=== PATIENT | male | born 1965 | race Hispanic/Latino ===

== ENCOUNTER 2016-06-22 06:52 | Emergency (ER) | payer OTHER ==
[~2016-06-22] VITALS: Ht 170.2 cm; Wt 90.7 kg
[~2016-06-22 06:52] MED LIST: BACTRIM DS 8001 TAB PO; CYMBALTA 30 MG30 MG PO; CYMBALTA60 MG PO; FLEXERIL10 MG PO; KEFLEX500 MG PO; MOBIC 15MG15 MG PO; OLANZAPINE7.5 MG PO; PRAVASTATIN SOD20 M1 PO; VICODIN10-300 PO; ZOFRAN ODT4 MG SL; ZYPREXA7.5 MG PO
--- NOTE | 2016-06-22 07:18 | ED GI/GU/ABDOMINAL COMPLAINT ---
History of Present Illness General Chief Complaint: General Adult Stated Complaint: +N+D/ABD PAIN Source: patient Exam Limitations: no limitations Vital Signs & Intake/Output Vital Signs & Intake/Output Vital Signs Date Time Temp Pulse Resp B/P Pulse O2 O2 Flow FiO2 Ox Delivery Rate 06/22 0636 Room Air Room Air 06/22 704 97.7 72 20 144/87 98 Room Air Allergies Coded Allergies: NO KNOWN ALLERGIES (06/22/16) Reconcile Medications Dicyclomine Hydrochloride (Bentyl) 10 MG CAPSULE 1 CAP PO TID PRN SPASM Diphenoxylate HCl/Atropine (Lomotil 2.5-0.025 MG Tablet) 2.5 MG-0.025 MG TABLET 1 TAB PO 4 TIMES/DAY PRN DIARRHEA DULOXETINE HCL (Cymbalta) 60 MG ECC 1 CAP PO BID MENTAL HEALTH (Reported) HYDROCODONE/ACETAMINOPHEN (Hydrocodon-Acetaminophen 5-325) 1 TAB TAB 1 TAB PO TID PRN PAIN Olanzapine 7.5 MG TAB 1 TAB PO QPM MENTAL HEALTH (Reported) Pravastatin Sodium 20 MG TAB 1 TAB PO QPM CHOLESTEROL (Reported) Triage Note: PT TO ED FROM HOME FOR "I THINK I GOT THAT STOMACH BUG." +NAUSEA, NO VOMITING, +DIARRHEA; DENIES BLOOD IN STOOL. +ABD PAIN, "TUESDAY NIGHT I ATE A DOUBLE BURGER FROM [employer] AND I DON'T THINK IT WAS COOKED ALL THE WAY. AND THEN YESTERDAY MORNING I STARTED FEELING SICK." Triage Nurses Notes Reviewed? yes Onset: Abrupt Duration: day(s): (2), waxing and waning Timing: multiple episodes today Location: generalized abdomen Activities at Onset: ATE UNDERCOOKED HAMBURGER No Modifying Factors: none Associated Symptoms: abdominal pain, diarrhea HPI: This is a 50-year-old male with history of depression, borderline high cholesterol was as the acutely of abdominal pain and diarrhea that started on Tuesday morning. He states that in a heated [employer] and thinks he ate an undercooked burger. No fever or chills. No nausea or vomiting. He states he has no cramping abdominal pain that got better after diarrhea yesterday. He tolerated some soup and some toast last night but then symptoms started again in the evening. Denies any blood in his stool. Positive sick contacts at home with gastrointestinal symptoms. No recent travel or antibiotic use. Past History Travel History Traveled to [place] past 21 day No Medical History Any Pertinent Medical History? see below for history Neurological: NONE EENT: NONE Cardiovascular: hyperlipidemia Respiratory: NONE Gastrointestinal: NONE Hepatic: NONE Renal: NONE Musculoskeletal: NONE Psychiatric: bipolar disease, depression Endocrine: NONE Blood Disorders: NONE Cancer(s): NONE COMPLIANCE SPEC/Reproductive: NONE Surgical History Surgical History: ANAL FISSURE Psychosocial History Who do you live with Family What is your primary language Scottish Tobacco Use: Quit >30 days ago ETOH Use: occasional use Illicit Drug Use: denies illicit drug use Family History Hx Contributory? No Review of Systems Review of Systems Constitutional: Reports: no symptoms. EENTM: Reports: no symptoms. Respiratory: Reports: no symptoms. Cardiovascular: Reports: no symptoms. GI: Reports: no symptoms. Genitourinary: Reports: no symptoms. Musculoskeletal: Reports: no symptoms. Skin: Reports: no symptoms. Neurological/Psychological: Reports: no symptoms. Hematologic/Endocrine: Reports: no symptoms. Immunologic/Allergic: Reports: no symptoms. All Other Systems: Reviewed and Negative Physical Exam Physical Exam General Appearance: well developed/nourished, alert, awake Head: atraumatic, normal appearance Eyes: Bilateral: normal appearance, PERRL, EOMI. Ears, Nose, Throat, Mouth: hearing grossly normal, moist mucous membrane Neck: normal inspection, supple, full range of motion Respiratory: normal breath sounds, chest non-tender, no respiratory distress Cardiovascular: regular rate/rhythm Peripheral Pulses: 2+ radial (R), 2+ radial (L) Gastrointestinal: normal bowel sounds, soft, non-tender Extremities: normal range of motion, evidence of injury, pelvis stable Core Measures ACS in differential dx? No Severe Sepsis Present: No Septic Shock Present: No Progress Differential Diagnosis: COLITIS, ENTERITIS, ISCHEMIC BOWEL, IBD, IBS Plan of Care: Orders Procedure Date/time Status Add-on Test (ER Only) 06/22 07 Active LACTIC ACID 06/22 724 Complete URINALYSIS 06/22 711 Active TROPONIN LEVEL 06/22 711 Complete COMPREHENSIVE METABOLIC PANEL 06/22 711 Complete CBC WITHOUT DIFFERENTIAL 06/22 711 Complete EKG 06/22 711 Active Current Medications Sig/Andre Start time Last Medication Dose Stop Time Status Admin Sodium Chloride 1,000 ML BOLUS ONE 06/22 08 AC (Normal Saline 0.9%) 06/22 928 Laboratory Tests 06/22/16 0846: Urine Color YEL, Urine Clarity HAZY H, Urine pH 6.0, Ur Specific [place] >= 1.030, Urine Protein TRACE H, Urine Ketones TRACE H, Urine Nitrite NEG, Urine Bilirubin NEG, Urine Urobilinogen 0.2, Ur Leukocyte Esterase NEG, Ur Microscopic SEDIMENT EXAMINED, Urine RBC Pending, Urine Hemoglobin NEG, Urine Glucose NEG 06/22/16 0725: Anion Gap 17 H, Estimated GFR > 60, BUN/Creatinine Ratio 16.0, Glucose 153 H, Lactic Acid 1.5, Calcium 10.0, Total Bilirubin 0.8, AST 16 L, ALT 24, Alkaline Phosphatase 85, Troponin I < 0.01, Total Protein 7.8, Albumin 4.5, Globulin 3.3, Albumin/Globulin Ratio 1.4, CBC w Diff NO MAN DIFF REQ, RBC 5.91, MCV 88.1, MCH 29.7, RDW 13.4, MPV 7.6, Gran % 79.0 H, Lymphocytes % 12.1 L, Monocytes % 7.6, Eosinophils % 1.0, Basophils % 0.3, Absolute Granulocytes 9.1 H, Absolute Lymphocytes 1.4, Absolute Monocytes 0.9 H, Absolute Eosinophils 0.1, Absolute Basophils 0, PUBS MCHC 33.8 06/22/2016 8:18:02 AM Patient resting comfortably. Second liter of fluid ordered. Urinalysis pending at this time. (LU CHAVEZ,EDWARDO) Initial ED EKG: NSR Departure Departure Time of Disposition: 905 Disposition: HOME OR SELF CARE Condition: Stable Clinical Impression Primary Impression: Diarrhea Referrals: TROY CHAVEZ,SUDHAKAR (PCP/Family) Additional Instructions: Take the Lomotil and Bentyl as directed. Follow a bland diet for the next few days. Follow-up with her doctor the office. Return to the ER as needed. Departure Forms: Customer Survey General Discharge Information Prescriptions: Current Visit Scripts Dicyclomine Hydrochloride (Bentyl) 1 CAP PO TID PRN SPASM #20 CAP Diphenoxylate HCl/Atropine (Lomotil 2.5-0.025 MG Tablet) 1 TAB PO 4 TIMES/DAY PRN DIARRHEA #20 TAB
[2016-06-22 08:11] LABS: ABSOLUTE BASOPHIL COUNT 0 /CUMM (0.0-0.2); ABSOLUTE EOSINOPHIL COUNT 0.1 /CUMM (0.0-0.7); ABSOLUTE GRANULOCYTE CT 9.1 /CUMM (1.4-6.5); ABSOLUTE LYMPH COUNT 1.4 /CUMM (1.2-3.4); ABSOLUTE MONOCYTE COUNT 0.9 /CUMM (0.10-0.60); BASOPHIL % 0.3 % (0.0-2.0); MEAN CORPUSCULAR HGB 29.7 PG (27.0-31.0); MEAN CORPUSCULAR HGB CONC 33.8 G/DL (33.0-37.0); MEAN CORPUSCULAR VOLUME 88.1 FL (80.0-94.0); MEAN PLATELET VOLUME 7.6 FL (7.4-10.4); PLATELET COUNT 327 /CUMM (130-400); RBC DISTRIBUTION WIDTH 13.4 % (11.5-14.5); RED BLOOD CELL CT 5.91 /CUMM (4.70-6.10); WHITE BLOOD CELL COUNT 11.6 /CUMM (4.8-10.8)
[2016-06-22] MEDS ORDERED: BENTYL10 M1 PO (09:07)
[2016-06-22] MEDS ORDERED: LOMOTIL 2.5-0.1 EACH PO (09:07)
[2016-06-22 09:09] VITALS: BP 118/62
== END 2016-06-22 09:16 ==
LOC: ERH 06:52
PROVIDERS: Emergency Medicine
DX: R19.7 Diarrhea, unspecified (principal); R10.9 Unspecified abdominal pain
CPT/HCPCS: 81001; 93005; 93010; 96361; 96372; 96374; J0500; J1885